=== PATIENT | male | born 1955 | race Caucasian/White ===

== ENCOUNTER 2018-11-17 07:31 | Day surgery (SDC) | payer OTHER ==
[~2018-11-17] VITALS: Ht 185.5 cm; Wt 124.5 kg
[2018-11-17] VITALS (11 sets, daily range): BP systolic 119–147; BP diastolic 87–105; PULSE 58–150; TEMP 97.8
[~2018-11-17 07:31] MED LIST: CELEBREX 200MG200 MG PO; FLEXERIL 1010 MG/TAB PO; NORCO 325 MG-51 TAB PO; NORVASC 10MG10 MG PO; TRIAMCINOLONE0.11 TP
[2018-11-17 08:08] LABS: HEMATOCRIT 47.1 % (42.0-52.0); HEMOGLOBIN 16.3 g/dl (13.5-18.0); MEAN CELL VOLUME 88 fl (80.0-100.0); MEAN CORPUSCULAR HEMOGLOBIN 31 pg (27.0-31.0); MEAN CORPUSCULAR HGB CONC 35 g/dl (33.0-37.0); MEAN PLATELET VOLUME 9.7 fl (7.4-10.4); PLATELET COUNT 80 K/mm3 (130-400); RED BLOOD COUNT 5.34 M/mm3 (4.20-5.60); REDCELL DISTRIBUTION WIDTH-CV 13.3 % (11.5-14.5)
[2018-11-17 08:14] LABS: PROTHROMBIN TIME 11.6 SECONDS (9.7-12.8)
[2018-11-17 08:18] LABS: CALCIUM 9.4 mg/dL (8.4-10.2); CREATININE, serum 0.81 (0.66-1.25); POTASSIUM 4.2 mmol/L (3.4-5.0)
[2018-11-17] MEDS ORDERED: CELEBREX 200MG200 MG PO (08:46)
[2018-11-17] MEDS ORDERED: VITAMIN D32000 I1 PO (08:46)
[2018-11-17] MEDS ORDERED: NEURONTIN300 MG/CAP PO (08:47)
--- NOTE | 2018-11-17 09:35 | NUR ---
ALL MEDICATIONS GIVEN VORB WITH MD. SEE MERGE FOR ALL MEDICATION ADMIN TIMES. SEE MERGE FOR ALL RASS ASSESSMENTS DURING AND POST PROCEDURE. RADIAL PULSE +2. POSITIVE BARBEAU'S TEST IN THE RIGHT WRIST. NITRO PASTE APPLIED PRIOR TO PROCEDURE, REFER TO MAR.
--- NOTE | 2018-11-17 10:30 | NUR ---
Back from laboratory apparatus glass blower by bed. Report from Mark CRABTREE. VS baseline. Alert and oriented. Denies pain at this time. Right wrist Tband with 13 cc air, good pulses and cap refill < 3secs noted.
[2018-11-17] MEDS ORDERED: ALTACE 2.5MG T2.5 MG PO (10:31)
[2018-11-17] MEDS ORDERED: LIPITOR20 MG PO (10:32)
[2018-11-17] MEDS ORDERED: ASPIRIN 81M81 MG/TA2 PO (10:32)
[2018-11-17] MEDS ORDERED: LOVAZA1 GM PO (10:33)
--- NOTE | 2018-11-17 10:38 | NUR ---
Patient transported back to room 11 at 1030. Patient is awake and alert at this time. Patient hooked back up to monitoring equipment, VS stable. Patient denies any pain at this time. Pat RN at bedside. Visualized right radial site with RN. TR band remains in place with 13 mls of air in the band. No oozing or hematoma present, site is soft and nontender at this time. Cap refill <3 seconds. Discussed importance of wrist restrictions with patient and spouse. All questions and concerns addressed at this time. Bed in locked and lowest position, call light within reach.
--- NOTE | 2018-11-17 12:45 | NUR ---
Took 3 cc out of band and site started to bleed. Reinserted 3 cc and bleeding stopped
--- NOTE | 2018-11-17 13:37 | NUR ---
Right Tband deflated of 13 cc air, no bleeding noted. Pressure dressing applied to right wrist. INT to left forearm discontinued intact. Ambulated to bathroom with steady gait.
--- NOTE | 2018-11-17 13:50 | NUR ---
Transferred to private car by lauryn
== END 2018-11-17 13:55 | disposition home or self-care (01) ==
LOC: COL.CAR 07:31
PROVIDERS: Internal Medicine Cardiovascular Disease
DX: R07.9 Chest pain, unspecified (principal); R94.39 Abnormal result of other cardiovascular function study; Z88.0 Allergy status to penicillin
CPT/HCPCS: J1644; J2250; J3010; Q9967